=== PATIENT | male | born 1995 | race Two or more races ===

== ENCOUNTER 2022-10-18 17:28 | Emergency (ER) | payer BC ==
[~2022-10-18] VITALS: Ht 180.3 cm; Wt 134.4 kg
[2022-10-18 17:38] VITALS: BP 144/86
[2022-10-18 18:58] LABS: Urine Bacteria NONE SEEN /hpf (None Seen); Urine Blood Negative /uL (Negative); Urine Specific Gravity 1.022 (1.001-1.035); Urine WBC 1 /hpf (0 - 3)
[2022-10-18] MEDS ORDERED: CYCL-837 PO ×2 (19:13)
[2022-10-18] MEDS ORDERED: IBUP-1455 PO ×2 (19:13)
[2022-10-18] MEDS ORDERED: KETOROLAC TROMETH 30 MG/ML 1ML VIAL IM ONE (19:15)
[2022-10-19] MEDS ORDERED: CYCL-837 PO (18:29)
[2022-10-19] MEDS ORDERED: IBUP-1455 PO (18:29)
== END 2022-10-18 19:27 | disposition home or self-care (01) ==
LOC: ER 17:28
DX: M54.59 Other low back pain (principal); Z88.6 Allergy status to analgesic agent
CPT/HCPCS: 72100; 81001; 96372; 99284; J1885

== ENCOUNTER → 2023-04-04 | Outpatient (CLI) | payer BC ==
[~2023-04-04] MED LIST: CYCL-837 PO; IBUP-1455 PO
== END | disposition home or self-care (01) ==
LOC: Rad HDHVI 08:06
PROVIDERS: ATTEND Internal Medicine Cardiovascular Disease
DX: I10 Essential (primary) hypertension (principal)
CPT/HCPCS: 93306

== ENCOUNTER → 2023-04-05 | Outpatient (CLI) | payer BC ==
[~2023-04-05] VITALS: Ht 180.3 cm; Wt 143.8 kg
== END | disposition home or self-care (01) ==
LOC: Rad HDHVI 09:04
PROVIDERS: ATTEND Internal Medicine Cardiovascular Disease
DX: R01.1 Cardiac murmur, unspecified (principal); R73.9 Hyperglycemia, unspecified; Z82.49 Family history of ischemic heart disease and other diseases of the circulatory system
CPT/HCPCS: 93017